=== PATIENT | male | born 1950 | race Caucasian/White ===

== ENCOUNTER → 2016-10-20 | Outpatient (CLI) | payer OTHER, MEDICARE | LOC: BRMIMAGING 08:15 | PROVIDERS: ATTEND Physician Assistant | DX: K74.60 Unspecified cirrhosis of liver (principal); B18.2 Chronic viral hepatitis C | CPT/HCPCS: 76705-PO ==

== ENCOUNTER → 2016-11-18 | Outpatient (CLI) | payer OTHER, MEDICARE | LOC: CIMAGING 09:03 | PROVIDERS: ATTEND Internal Medicine | DX: J98.4 Other disorders of lung (principal); R09.02 Hypoxemia | CPT/HCPCS: 71020-PO; 84153-PO; 90670-PO; G0009-PO ==

== ENCOUNTER → 2016-11-24 | Outpatient (CLI) | payer OTHER, MEDICARE ==
[~2016-11-24] MED LIST: IOPAMIDOL (ISOVUE 370) 100 ML BTL IV ONE
== END ==
LOC: CIMAGING 09:10
PROVIDERS: ATTEND Internal Medicine
DX: R09.02 Hypoxemia (principal); R91.8 Other nonspecific abnormal finding of lung field
CPT/HCPCS: 71275; Q9967

== ENCOUNTER → 2016-12-04 | Outpatient (CLI) | payer OTHER, MEDICARE | LOC: BHFA 08:00 | PROVIDERS: ATTEND Internal Medicine Critical Care Medicine | DX: J45.909 Unspecified asthma, uncomplicated (principal); J84.9 Interstitial pulmonary disease, unspecified ==

== ENCOUNTER → 2017-02-06 | Outpatient (CLI) | payer OTHER, MEDICARE | LOC: BHCLAF 08:30 | PROVIDERS: ATTEND Internal Medicine Cardiovascular Disease | DX: R06.00 Dyspnea, unspecified (principal) | CPT/HCPCS: 93306-PO ==

== ENCOUNTER → 2017-05-01 | Outpatient (CLI) | payer OTHER, MEDICARE | LOC: BRMIMAGING 08:43 | PROVIDERS: ATTEND Internal Medicine Gastroenterology | DX: K80.80 Other cholelithiasis without obstruction (principal) | CPT/HCPCS: 76705-PO ==

== ENCOUNTER → 2017-11-17 | Outpatient (CLI) | payer OTHER, MEDICARE | LOC: BRMIMAGING 08:35 | PROVIDERS: ATTEND Physician Assistant | DX: K74.60 Unspecified cirrhosis of liver (principal); K80.20 Calculus of gallbladder without cholecystitis without obstruction | CPT/HCPCS: 76705-PO ==

== ENCOUNTER → 2018-05-17 | Outpatient (CLI) | payer OTHER, MEDICARE | LOC: BRMIMAGING 08:35 | PROVIDERS: ATTEND Physician Assistant | DX: K80.20 Calculus of gallbladder without cholecystitis without obstruction (principal); R93.2 Abnormal findings on diagnostic imaging of liver and biliary tract | CPT/HCPCS: 36415-PO; 76705-PO; 80076-PO ==

== ENCOUNTER → 2019-01-10 | Outpatient (CLI) | payer OTHER, MEDICARE | LOC: BRMIMAGING 08:28 | PROVIDERS: ATTEND Physician Assistant | DX: K74.60 Unspecified cirrhosis of liver (principal); K80.20 Calculus of gallbladder without cholecystitis without obstruction | CPT/HCPCS: 76705-PO ==

== ENCOUNTER → 2019-01-18 | Outpatient (CLI) | payer OTHER, MEDICARE | LOC: CIMAGING 09:31 | PROVIDERS: ATTEND Internal Medicine Pulmonary Disease | DX: J84.112 Idiopathic pulmonary fibrosis (principal); Z87.891 Personal history of nicotine dependence | CPT/HCPCS: 36415-PO; 71250-PO ==